=== PATIENT | female | born 1960 | race Caucasian/White ===

== ENCOUNTER 2016-09-06 21:21 | Emergency (ER) | payer BC ==
[2016-09-06] MEDS ORDERED: ERYTHROMYCIN OPHTH OINT 1 GM TUBE RIGHTEYE STA (21:56)
--- NOTE | 2016-09-06 21:58 | ED Physician Documentation ---
PD HPI OPHTHO - Stated complaint Stated Complaint: RT EYE REDNESS - Chief complaint Chief Complaint: Heent - History obtained from History obtained from: Patient - History of Present Illness Timing - onset: Other (Right eye redness and drainage today with some URI symptoms and no vision loss. She does not wear contacts.) Review of Systems Constitutional: denies: Fever, Chills Eyes: denies: Loss of vision, Decreased vision Ears: denies: Loss of hearing, Ear pain PD PAST MEDICAL HISTORY - Past Medical History Past Medical History: No - Past Surgical History Past Surgical History: No - Present Medications Home Medications: Ambulatory Orders Medication Instructions Recorded Confirmed Atorvastatin Calcium 20 mg PO DAILY 09/06/16 09/06/16 Erythromycin Base [Erythromycin] 1 applic OP 5XD 7 Days 09/06/16 Furosemide 20 mg PO DAILY 09/06/16 09/06/16 Metoprolol Tartrate 25 mg PO DAILY 09/06/16 09/06/16 - Allergies Allergies/Adverse Reactions: Allergies Allergy/AdvReac Type Severity Reaction Status Date / Time No Known Drug Allergies Allergy Verified 09/06/16 21:29 - Social History Does the pt smoke?: No Smoking Status: Never smoker Does the pt drink ETOH?: No PD ED PE NORMAL - Vitals Vital signs reviewed: Yes - General General: Alert and oriented X 3, No acute distress - HEENT HEENT: PERRL, EOMI, Other (Purulent drainage from the right eye with conjunctivitis.) - Neuro Neuro: Alert and oriented X 3, Normal speech - Psych Psych: Normal mood, Normal affect Results - Vitals Vitals: Vital Signs - 24 hr 09/06/16 21:27 Temperature 36.6 C Heart Rate 61 Respiratory 18 Rate O2 Saturation 98 Oxygen O2 Source Room air Departure - Departure Disposition: 01 Home, Self Care Clinical Impression: Conjunctivitis, right eye Qualifiers: Conjunctivitis type: acute Acute conjunctivitis type: bacterial Qualified Code( s): H10.31 - Unspecified acute conjunctivitis, right eye Condition: Good Record reviewed to determine appropriate education?: Yes Instructions: ED Conjunctivitis Bacterial Prescriptions: Erythromycin Base [Erythromycin] 1 applic OP 5XD 7 Days Comments: Follow-up with your eye doctor back home midweek if not improved.
[2016-09-06] MEDS ORDERED: ERYTHROMYCIN OPHTH OINT 1 GM TUBE ONE (22:06)
== END 2016-09-06 22:13 | disposition home or self-care (01) ==
LOC: ED 21:21
DX: H10.31 Unspecified acute conjunctivitis, right eye (principal)
CPT/HCPCS: 99283; J3490